=== PATIENT | male | born 1950 | race Caucasian/White ===

== ENCOUNTER → 2021-11-06 | Outpatient (CLI) | payer OTHER ==
[~2021-11-06] MED LIST: ALLO300 PO; AMLO5 PO; ASPI81CH PO; ATEN25 PO; B-COMPLEX WITH1 EAC1 PO; CHOL10002; CYAN100 PO; FOLI1 PO; HYDMOR4 PO; LOSA25 PO; LOVA40; METO100ER PO; OLME20 PO; OMEP20ER PO; OXYACE5T PO; POTCHL10ER PO; PROM25 PO; RXOXYACE PO; RXPROM25 PO; SIMV10 PO; TAMS.4ER PO; TEMA15 PO; WATER PILL; [UNRECOGNIZED DRUG - REMARK]
== END | disposition home or self-care (01) ==
LOC: LAB SHORT 09:54 → PLD 09:54
DX: D22.5 Melanocytic nevi of trunk (principal)
CPT/HCPCS: 88305

== ENCOUNTER → 2022-01-23 | Outpatient (CLI) | payer OTHER | END | disposition home or self-care (01) | LOC: PLD 08:32 → LAB SHORT 08:32 | DX: D22.5 Melanocytic nevi of trunk (principal) | CPT/HCPCS: 88305 ==

== ENCOUNTER 2023-04-26 15:39 | Inpatient (IN) | payer OTHER ==
[~2023-04-26] VITALS: Ht 175.3 cm; Wt 91.0 kg
[~2023-04-26 15:39] MED LIST changes: +CEFD300 PO; +IBUP600 PO
[2023-04-26 16:20] LABS: Hematocrit 33.2 % (37.0-53.0); Hemoglobin 12.3 g/dL (13.5-17.5); Mean Corpuscular HGB 34.2 pg (26.0-34.0); Mean Corpuscular Volume 92 fL (80-100); Mean Platelet Volume 10.6 fL (9.1-12.4); NRBC ABSOLUTE 0.02 K/mm3 (0.00-0.02); NRBC Auto 0.2 /100 WBC (0.0-0.2); Platelet Count 373 K/mm3 (150-400); RDW Coefficient Variation 14.5 % (11.7-14.2); RDW Standard Deviation 48.3 fL (35.1-46.3); White Blood Cell Count 12.79 K/mm3 (4.00-11.30)
[2023-04-26 16:46] LABS: Albumin, Blood 1.7 g/dL (3.4-5.0); Albumin/Globulin Ratio 0.3 (0.8-1.8); Bilirubin, Total 0.7 mg/dL (0.1-1.0); Bun/Creatinine Ratio 20.5 (12.0-20.0); Calcium, Blood 8.9 mg/dL (8.5-10.1); Creatinine, Blood 3.17 mg/dL (0.60-1.20); Globulin, Blood 6.6 g/dL (2.2-4.0); Total Protein, Blood 8.3 g/dL (6.4-8.2)
[2023-04-26 16:57] LABS: BAND PERCENT MAN 53 % (0-8); BASOPHILS PERCENT MAN 0 % (0-2); EOSINOPHILS ABSOLUTE MAN 0.25 K/mm3 (0.00-0.68); EOSINOPHILS PERCENT MAN 2 % (0-6); LYMPHOCYTES ABSOLUTE MAN 1.66 K/mm3 (0.84-5.20); LYMPHOCYTES PERCENT MAN 13 % (21-46); METAMYELOCYTE ABSOLUTE MAN 0.25 K/mm3 (0.00-0.00); METAMYELOCYTE PERCENT MAN 2 % (0-0); MONOCYTES ABSOLUTE MAN 0.63 K/mm3 (0.16-1.47); MONOCYTES PERCENT MAN 5 % (4-13); MYELOCYTE ABSOLUTE MAN 0.12 K/mm3 (0.00-0.00); MYELOCYTE PERCENT MAN 1 % (0-0); NEUTROPHILS ABSOLUTE MAN 9.84 K/mm3 (1.96-9.15); SEG NEUTROPHILS PERCENT MAN 24 % (41-73); TOTAL CELLS COUNTED 100
[2023-04-27 02:24] VITALS: BP 103/56
[2023-04-27 05:29] LABS: Hematocrit 30.3 % (37.0-53.0); Hemoglobin 10.8 g/dL (13.5-17.5); Mean Corpuscular HGB 33.6 pg (26.0-34.0); Mean Corpuscular HGB Conc 35.6 g/dL (31.5-36.5); Mean Corpuscular Volume 94 fL (80-100); Mean Platelet Volume 10.6 fL (9.1-12.4); Platelet Count 345 K/mm3 (150-400); RDW Coefficient Variation 14.8 % (11.7-14.2); RDW Standard Deviation 50.8 fL (35.1-46.3); Red Blood Cell Count 3.21 M/mm3 (4.30-5.90); White Blood Cell Count 8.98 K/mm3 (4.00-11.30)
[2023-04-27 06:17] LABS: BAND PERCENT MAN 20 % (0-8); BASOPHILS ABSOLUTE MAN 0.08 K/mm3 (0.00-0.23); BASOPHILS PERCENT MAN 1 % (0-2); EOSINOPHILS ABSOLUTE MAN 0.17 K/mm3 (0.00-0.68); EOSINOPHILS PERCENT MAN 2 % (0-6); LYMPHOCYTES ABSOLUTE MAN 1.52 K/mm3 (0.84-5.20); LYMPHOCYTES PERCENT MAN 17 % (21-46); MONOCYTES PERCENT MAN 9 % (4-13); NEUTROPHILS ABSOLUTE MAN 6.37 K/mm3 (1.96-9.15); SEG NEUTROPHILS PERCENT MAN 51 % (41-73); TOTAL CELLS COUNTED 100
[2023-04-27 06:54] LABS: Bun/Creatinine Ratio 20.8 (12.0-20.0); Calcium, Blood 7.7 mg/dL (8.5-10.1); Creatinine, Blood 2.88 mg/dL (0.60-1.20); Potassium, Blood 3.6 mmol/L (3.5-5.5)
--- NOTE | 2023-04-27 07:21 | NUR ---
SHIFT SUMMARY ADMITTED FROM ED. EMPYEMA. GAS MAIN FITTER HELPER CONSULTED. A/OX4. ROOM AIR. TACHYPNIC, CRACKLES TO R LUNG. IV FLUIDS INFUSING. SKIN INTACT. 1 PERSON ASSISST WITH GAIT BELT, GENERALIZED WEAKNESS. VERY POOR APPETITE, NO BM FOR MORE THAN 3 DAYS. ABLE TO MAKE NEEDS KNOWN, CALL LIGHT IN REACH, BED ALARM ON, BED LOCKED IN LOW POSITION.
[2023-04-27 07:27] VITALS: BP 134/73
[2023-04-27 08:35] LABS: International Normalized Ratio 1.42; Prothrombin Time Results 14.6 Sec (9.7-11.5)
[2023-04-27 12:18] LABS: Glucose, Body Fluid 16 mg/dL
[2023-04-27 12:53] LABS: Automated BF RBC Count 0.264 M/mm3 (0-0); Automated BF WBC Count >200.000 K/mm3 (0-999); RBC Count, Body Fluid 264000 /mm3 (0-0)
[2023-04-27 12:54] LABS: Appearance, Body Fluid Cloudy (Clear)
[2023-04-27 13:11] LABS: Total Cell Count, Body Fluid 100
[2023-04-27 16:29] VITALS: BP 90/50
--- NOTE | 2023-04-27 17:30 | NUR ---
SHIFT SUMMARY PT AxOx3-4. PLEASANT AND COOPERATIVE WITH CARE. PT HAD CHEST TUBE PLACED AND DRAINAGE FROM EMPYEMA THIS AM. PT TOLERATED PROCEDURE WELL AND RETURNED TO HIS ROOM AT APPROX 1100. PAIN MEDS ADMINISTERED PER EMAR FOR PAIN R/T PROCEDURE. CHEST TUBE SITE TO R POSTERIOR BACK WITH WINDOW DRESSING COVERING INTACT. DUST BOX WORKER (JEN) IN ROOM REGULARLY T/O THIS SHIFT, AND CALLED TO UPDATE S/O () ON PLAN OF CARE. PT HAS REMAINED STABLE. IV ABX WERE CHANGED AND IV FLUIDS WERE RESTARTED. CHEST TUBE SUCTION SET TO 20 -mmHG. PT HAS BEEN INCONTINENT WITH PROFOUND GENERAL WEAKNESS THIS SHIFT. PT IS CURRENLY RESTING IN BED WITH S/O AT BEDSIDE. S/O () REPORTS BEING VERY CONCERNED ABOUT THE PATIENT'S OF POOR-NON EXISTENT APPETITE x2 WEEKS. PT TOOK A FEW SIPS OF WATER, GATORADE, AND ENSURE THIS SHIFT. OTHERWISE, HE REFUSED ALL MEALS. CALL LIGHT IN REACH. PER PROVIDER, PT SHOULD EXPECT A FEW NIGHT STAY IN THE HOSPITAL.
[2023-04-27 19:55] VITALS: BP 112/58
[2023-04-28 02:12] VITALS: BP 97/52
--- NOTE | 2023-04-28 04:14 | NUR ---
SHIFT SUMMARY A/0X4. WAS SATTING 90% ON ROOM AIR. PLACED ON 1L NC. PRODUCTIVE COUGH, STREAKED WITH BLOOD. BILATEAL LE EDEMA. PLAN TO DIURESE AND ECHO OF HEART TODAY. CONTINENT, URINALS AT BEDSIDE. 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 NO OPEN WOUNDS. DAILY WEIGHTS. CALL LIGHT IN REACH, BED LOCKED IN LOW POSITION.
--- NOTE | 2023-04-28 04:35 | NUR ---
SHIFT SUMMARY PT LETHARGIC, OPENS EYES TO VOICE. MIXED INCONTINENCE, BRIEF ON, URINALS AT BEDSIDE. CHEST TUBE PLACED 04/27, BROWN/RED OUTPUT. JOINTS TAPED. WALL SUCTION AT -20. NO CREPITUS, CRACKLES TO RIGHT LUNG. REPEAT CHEST X-RAY THIS AM. VERY POOR APPETITE, ASSURANCE MANAGER INSURANCE CONSULTED, ENCOURAGE ORAL INTAKE/ELECTROLYTES. PT REPORTS SORENESS TO CHEST TUBE SITE BUT NO ASSOCIATED PAIN. IV FLUIDS INFUSING. CALL LIGHT IN REACH, BED ALARM ON, BED LOCKED IN LOW POSITION.
[2023-04-28 05:33] LABS: Hematocrit 24.6 % (37.0-53.0); Mean Corpuscular HGB 34.2 pg (26.0-34.0); Mean Corpuscular HGB Conc 36.6 g/dL (31.5-36.5); Mean Corpuscular Volume 94 fL (80-100); Mean Platelet Volume 10.4 fL (9.1-12.4); Platelet Count 294 K/mm3 (150-400); RDW Coefficient Variation 14.9 % (11.7-14.2); RDW Standard Deviation 50.2 fL (35.1-46.3); Red Blood Cell Count 2.63 M/mm3 (4.30-5.90); White Blood Cell Count 8.22 K/mm3 (4.00-11.30)
[2023-04-28 06:15] LABS: Albumin, Blood 1.1 g/dL (3.4-5.0); Albumin/Globulin Ratio 0.2 (0.8-1.8); BAND PERCENT MAN 8 % (0-8); BASOPHILS ABSOLUTE MAN 0.16 K/mm3 (0.00-0.23); BASOPHILS PERCENT MAN 2 % (0-2); Bilirubin, Total 0.5 mg/dL (0.1-1.0); Bun/Creatinine Ratio 24.8 (12.0-20.0); Calcium, Blood 7.9 mg/dL (8.5-10.1); Creatinine, Blood 2.14 mg/dL (0.60-1.20); EOSINOPHILS ABSOLUTE MAN 0.57 K/mm3 (0.00-0.68); EOSINOPHILS PERCENT MAN 7 % (0-6); Globulin, Blood 4.7 g/dL (2.2-4.0); LYMPHOCYTES ABSOLUTE MAN 1.31 K/mm3 (0.84-5.20); LYMPHOCYTES PERCENT MAN 16 % (21-46); MONOCYTES ABSOLUTE MAN 1.06 K/mm3 (0.16-1.47); MONOCYTES PERCENT MAN 13 % (4-13); NEUTROPHILS ABSOLUTE MAN 5.09 K/mm3 (1.96-9.15); Potassium, Blood 2.9 mmol/L (3.5-5.5); SEG NEUTROPHILS PERCENT MAN 54 % (41-73); TOTAL CELLS COUNTED 100
[2023-04-28 06:20] LABS: Total Protein, Blood 5.8 g/dL (6.4-8.2)
[2023-04-28 07:34] VITALS: BP 103/54
[2023-04-28 07:37] LABS: Base Excess Venous -8.7 mmol/L; Bicarbonate Venous 17.9 mmol/L (24.0-30.0); PCO2 Venous 36.2 mmHg (38-42)
[2023-04-28 16:52] VITALS: BP 102/63
--- NOTE | 2023-04-28 16:57 | NUR ---
PT IS A/OX4, PLEASANT AND COOPERATIVE. THE PT IS BEDREST AT THIS TIME DUE TO CHEST TUBE INSERTED IN HIS MID BACK. THE PT WAS MEDICATED FOR PAIN X2 SO FAR THIS SHIFT. PT APPEARS TO BE BREATHING EASILY ON 1L/MIN O2 AT THIS TIME. THE PT HAD A LARGE BM. THIS AM. DR. OVERTON MACHINE OPERATOR HELPER WAS IN TO CONSULT WITH THE PT TODAY. CALL LIGHT IN REACH. BED IN THE LOW POSITION
[2023-04-28 19:34] VITALS: BP 104/58
[2023-04-29 03:44] VITALS: BP 134/79
[2023-04-29 05:00] LABS: BASOPHILS ABSOLUTE AUTO 0.13 K/mm3 (0.00-0.23); BASOPHILS PERCENT AUTO 1 % (0-2); EOSINOPHILS ABSOLUTE AUTO 0.69 K/mm3 (0.00-0.68); EOSINOPHILS PERCENT AUTO 8 % (0-6); Hematocrit 26.7 % (37.0-53.0); Hemoglobin 9.7 g/dL (13.5-17.5); IMMATURE GRAN ABSOLUTE AUTO 0.47 K/mm3 (0.00-0.10); IMMATURE GRAN PERCENT AUTO 5 % (0-1); LYMPHOCYTES ABSOLUTE AUTO 1.53 K/mm3 (0.84-5.20); LYMPHOCYTES PERCENT AUTO 17 % (21-46); MONOCYTES ABSOLUTE AUTO 0.88 K/mm3 (0.16-1.47); MONOCYTES PERCENT AUTO 10 % (4-13); Mean Corpuscular HGB 34.5 pg (26.0-34.0); Mean Corpuscular HGB Conc 36.3 g/dL (31.5-36.5); Mean Corpuscular Volume 95 fL (80-100); Mean Platelet Volume 10.5 fL (9.1-12.4); NEUTROPHILS ABSOLUTE AUTO 5.52 K/mm3 (1.96-9.15); NEUTROPHILS PERCENT AUTO 60 % (41-73); NRBC ABSOLUTE 0.02 K/mm3 (0.00-0.02); NRBC Auto 0.2 /100 WBC (0.0-0.2); Platelet Count 300 K/mm3 (150-400); RDW Coefficient Variation 15.3 % (11.7-14.2); RDW Standard Deviation 52.6 fL (35.1-46.3); Red Blood Cell Count 2.81 M/mm3 (4.30-5.90); White Blood Cell Count 9.22 K/mm3 (4.00-11.30)
--- NOTE | 2023-04-29 05:06 | NUR ---
END OF SHIFT SUMMARY PT A&O x3-4, SOMEWHAT FORGETFUL. VSS, AFEBRILE. PT PLEASANT AND COOPERATIVE WITH CARE PROVIDED. PT CONTINENT OF B/B, USES URINAL AT BS. PT DENIED PAIN/DISCOMFORT DURING NURSING ASSESSMENT. PT SLEPT WELL THROUGHOUT THE SHIFT. PT ON 1L VIA NC. RESP RATE EVEN AND UNLABORED. CHEST TUBE DRAINAGE VERY SMALL AMOUNT OVERNIGHT. PT ABLE TO MAKE NEEDS KNOWN. CALL LIGHT WITHIN REACH, WCTM.
[2023-04-29 05:24] LABS: Albumin, Blood 1.2 g/dL (3.4-5.0); Albumin/Globulin Ratio 0.2 (0.8-1.8); Bilirubin, Total 0.4 mg/dL (0.1-1.0); Bun/Creatinine Ratio 23.4 (12.0-20.0); Calcium, Blood 8.1 mg/dL (8.5-10.1); Creatinine, Blood 1.71 mg/dL (0.60-1.20); Potassium, Blood 3.5 mmol/L (3.5-5.5); Total Protein, Blood 6.2 g/dL (6.4-8.2)
[2023-04-29 07:13] VITALS: BP 141/72
[2023-04-29 14:35] VITALS: BP 127/72
--- NOTE | 2023-04-29 18:18 | NUR ---
PT IS A/OX4, PLEASANT AND COOPERATIVE. THE PT IS UP WITH MINIMAL ASSIST TO THE CHAIR. THE PT WAS UP IN THE CHAIR FOR ABOUT AN HOUR TODAY. PT IS VERY WEAK ON HIS FEET. THE PT WAS TITRATED OFF OF OXYGEN TODAY SAT'S IN THE MID 90'S. PT CHEST TUBE REMAINS IN PLACE AND INTACT DRAINING SCANT AMOUNT OF FLUID AT THIS TIME. PT WAS MEDICATED FOR PAIN X1 TODAY. CALL LIGHT IN REACH. WILL CONTINUE TO MONITOR AND ASSESS FOR CAHNGES
[2023-04-29 21:15] VITALS: BP 117/66
[2023-04-30 03:06] VITALS: BP 146/83
--- NOTE | 2023-04-30 04:29 | NUR ---
END OF SHIFT SUMMARY PT SLEPT ON AND OFF THROUGHOUT THE SHIFT. PT A&O x3-4. THIS MORNING PT SEEMED TO BE SLIGHTLY CONFUSED, PT HELD THE IV TUBING UP IN HIS HAND ASKING CARE STAFF WHAT THAT WAS. PT RECEIVED IV ABX. PT EASILY REDIRECTABLE. PT HAD 2 EPISODES OF INCONTINENT LIQUID STOOLS. CORBY CARE PROVIDED. CALL LIGHT WRAPPED AROUND TOP OF BED RAIL, WITHIN REACH. PT CALM AND COOPERATIVE WITH CARE PROVIDED. FREQUENT SAFETY CHECKS COMPLETED. PT ABLE TO MAKE NEEDS KNOWN. WCTM.
[2023-04-30 05:00] LABS: BASOPHILS ABSOLUTE AUTO 0.11 K/mm3 (0.00-0.23); BASOPHILS PERCENT AUTO 1 % (0-2); EOSINOPHILS ABSOLUTE AUTO 0.76 K/mm3 (0.00-0.68); EOSINOPHILS PERCENT AUTO 10 % (0-6); Hemoglobin 9.5 g/dL (13.5-17.5); IMMATURE GRAN ABSOLUTE AUTO 0.42 K/mm3 (0.00-0.10); IMMATURE GRAN PERCENT AUTO 5 % (0-1); LYMPHOCYTES ABSOLUTE AUTO 1.57 K/mm3 (0.84-5.20); LYMPHOCYTES PERCENT AUTO 20 % (21-46); MONOCYTES ABSOLUTE AUTO 0.78 K/mm3 (0.16-1.47); MONOCYTES PERCENT AUTO 10 % (4-13); Mean Corpuscular HGB 34.4 pg (26.0-34.0); Mean Corpuscular HGB Conc 35.2 g/dL (31.5-36.5); Mean Corpuscular Volume 98 fL (80-100); Mean Platelet Volume 10.4 fL (9.1-12.4); NEUTROPHILS ABSOLUTE AUTO 4.13 K/mm3 (1.96-9.15); NEUTROPHILS PERCENT AUTO 53 % (41-73); Platelet Count 272 K/mm3 (150-400); RDW Coefficient Variation 15.8 % (11.7-14.2); RDW Standard Deviation 55.8 fL (35.1-46.3); Red Blood Cell Count 2.76 M/mm3 (4.30-5.90); White Blood Cell Count 7.77 K/mm3 (4.00-11.30)
[2023-04-30 05:27] LABS: Albumin, Blood 1.2 g/dL (3.4-5.0); Albumin/Globulin Ratio 0.2 (0.8-1.8); Bilirubin, Total 0.4 mg/dL (0.1-1.0); Bun/Creatinine Ratio 20.3 (12.0-20.0); Calcium, Blood 7.9 mg/dL (8.5-10.1); Creatinine, Blood 1.43 mg/dL (0.60-1.20); Potassium, Blood 3.5 mmol/L (3.5-5.5); Total Protein, Blood 6.2 g/dL (6.4-8.2)
[2023-04-30 07:09] VITALS: BP 147/81
[2023-04-30 15:58] VITALS: BP 137/84
--- NOTE | 2023-04-30 16:07 | NUR ---
PT IS A/OX4, PLEASANT AND COOPERATIVE. UP WITH 1 PERSON ASSIST TO THE CHAIR. TODAY THE PT AMBULATED INTO THE BATHROOM AND TOOK A SHOWER, THE PT WAS VERY WEAK ON HIS FEET AND SOMEWHAT SOB ON RETURN BACK TO THE BED. THE PT CONTINUES WITH CHEST TUBE DRAIN WITH SUCTION. DRAIN IS INTACT AND DRAING A SMALL AMOUNT OF YELLOW TINGED FLUID. PT WAS MEDICATED FOR PAIN X1 THIS AM. CALL LIGHT IN REACH. BED IN THE LOW POSITION.
[2023-04-30] MEDS ORDERED: ALLO100 PO (16:47)
[2023-04-30 21:19] VITALS: BP 158/92
[2023-05-01 01:42] VITALS: BP 104/75
[2023-05-01 05:25] LABS: BASOPHILS ABSOLUTE AUTO 0.11 K/mm3 (0.00-0.23); BASOPHILS PERCENT AUTO 1 % (0-2); EOSINOPHILS PERCENT AUTO 9 % (0-6); Hematocrit 30.3 % (37.0-53.0); Hemoglobin 10.5 g/dL (13.5-17.5); IMMATURE GRAN PERCENT AUTO 4 % (0-1); LYMPHOCYTES ABSOLUTE AUTO 1.63 K/mm3 (0.84-5.20); LYMPHOCYTES PERCENT AUTO 16 % (21-46); MONOCYTES ABSOLUTE AUTO 0.85 K/mm3 (0.16-1.47); MONOCYTES PERCENT AUTO 9 % (4-13); Mean Corpuscular HGB 33.9 pg (26.0-34.0); Mean Corpuscular HGB Conc 34.7 g/dL (31.5-36.5); Mean Corpuscular Volume 98 fL (80-100); Mean Platelet Volume 10.4 fL (9.1-12.4); NEUTROPHILS PERCENT AUTO 61 % (41-73); Platelet Count 278 K/mm3 (150-400); RDW Coefficient Variation 15.6 % (11.7-14.2); RDW Standard Deviation 55.2 fL (35.1-46.3); White Blood Cell Count 9.99 K/mm3 (4.00-11.30)
[2023-05-01 05:52] LABS: Bun/Creatinine Ratio 16.9 (12.0-20.0); Calcium, Blood 8.2 mg/dL (8.5-10.1); Creatinine, Blood 1.18 mg/dL (0.60-1.20); Potassium, Blood 3.5 mmol/L (3.5-5.5)
--- NOTE | 2023-05-01 06:12 | NUR ---
URINARY RETENTION AND LOOSE STOOLS PT HAS HAD ACUTE URINARY RETENTION THIS SHIFT, PT VOIDED 200 MLS AT THE START OF THE SHIFT BUT THE NIGHT PROGRESSED PT REPORTED FEELING UNCOMFORTABLE WITH THE URGE TO VOID, BUT HE WAS UNABLE. BLADDER SCAN PERFORMED WHICH SHOWED OVER 500 MLS IN BLADDER. IN ADDITION TO RETENTION PT HAS BEEN HAVING FREQUENT LOOSE STOOLS OVER THE PAST FEW DAYS. THEY APPEAR YELLOWISH BROWN WITH SOME JELLY LIKE CONSISTENCY. PROVIDER NOTIFIED, STRAIGHT CATH ORDERED AND ORDER TO TEST FOR CDIFF. PT STRAIGHT CATH AND 300 MLS OF URINE OBTAINED. STOOL SAMPLE COLLECTED. PT IN ISOLATION AT THIS TIME PENDING RESULTS.
--- NOTE | 2023-05-01 06:18 | NUR ---
SHIFT SUMMARY PT HAS BEEN AWAKE MOST OF THE SHIFT. PT HAS HAD SOME URINARY RETENTION AND FREQUENT INCONTINENT LOOSE STOOL EPISODES. PROVIDER MADE AWARE, SEE NURSES NOTES. PT REMAINS ON RA T/O THE NIGHT WITH NO ACUTE CHANGE TO RESPIRATORY STATUS. CHEST TUBE TO SUCTION WITH WITH MINIMAL OUTPUT THIS SHIFT. VITALS ARE STABLE, IV ANTIBIOTICS CONTINUED PER ORDERS. BED IN LOWEST POSITION, CALL LIGHT WITHIN REACH.
[2023-05-01 07:28] LABS: C DIFFICILE DNA NEGATIVE (Negative)
[2023-05-01 07:50] VITALS: BP 150/67
[2023-05-01 16:55] VITALS: BP 155/90
--- NOTE | 2023-05-01 18:31 | NUR ---
SHIFT SUMMARY: FAVIOLA IS A&OX4. VSS, NO ACUTE EVENTS THIS SHIFT. CHEST TUBE PATENT, CONNECTED TO SUCTION. PT HAS HAD A POOR APPETITE TODAY, BUT DENIES DIFFICULTY TOLERATING PO INTAKE. IV TO R FOREARM PATENT. PT HAS REQUIRED STRAIGHT CATH X 2 TODAY, PT COMPLAINS OF PAIN AND FULLNESS IN BLADDER WHICH HE REPORTS RESOLVES AFTER STRAIGHT CATH. HE REPORTS ADEQUATE PAIN RELIEF WITH MEDICATIONS PER MAR. HE IS LYING IN BED WITH THE CALL LIGHT IN REACH. WCTM UNTIL REPORT IS GIVEN TO ECOLOGY TEACHER RN.
[2023-05-01 19:41] VITALS: BP 152/79
[2023-05-01 20:20] LABS: Source, Urine Foley catheter
[2023-05-01 20:25] LABS: Appearance, Urine Cloudy (Clear); Bilirubin, Urine Neg (Neg); Blood, Urine 5+ (Neg); Color, Urine Amber (P-Yellow); Glucose Qualitative, Urine Neg (Neg); Ketones, Urine Neg (Neg); Leukocyte Esterase, Urine 1+ (Neg); Nitrite, Urine Neg (Neg); Protein, Urine 2+ (Neg); Specific Gravity, Urine 1.015 (1.003-1.022); Urobilinogen, Urine NORM (Normal)
[2023-05-01 21:20] LABS: Amorphous Light (0-Heavy); Bacteria Few /hpf; Red Blood Cells, Urine TNTC /hpf (0-2); Squamous Epithelial Cells Not Seen /hpf (Few); White Blood Cells, Urine 0-2 /hpf (0-5)
[2023-05-02 03:23] VITALS: BP 167/88
--- NOTE | 2023-05-02 06:50 | NUR ---
Shift Summary Per report pt had been straight cathed 3 times in the last 24 hours and he stated he was sure he would be unable to void. Contacted hospitalist who ordered Carson. During placement I noted it was difficult to enter the bladder and took some pressure. When Carson was placed it drained pink/red urine. Pt has a chest tube which remains patent. He is AOx4, rested well t/o the night.
[2023-05-02 07:33] LABS: Bun/Creatinine Ratio 12.1 (12.0-20.0); Calcium, Blood 7.6 mg/dL (8.5-10.1); Creatinine, Blood 1.07 mg/dL (0.60-1.20); Potassium, Blood 3.3 mmol/L (3.5-5.5)
[2023-05-02 07:58] VITALS: BP 170/81
[2023-05-02 14:59] VITALS: BP 134/77
--- NOTE | 2023-05-02 18:45 | NUR ---
SHIFT SUMMARY: FAVIOLA IS A&OX4. VSS, NO ACUTE EVENTS THIS SHIFT. HE DID REQUEST THAT STAFF CALL HIS SIGNIFICANT OTHER WHEN DOCTORS COME TO SPEAK WITH HIM, STATING THAT HE DOES NOT FEEL HE IS UNDERSTANDING EVERYTHING THAT IS BEING COMMUNICATED TO HIM, PHONE NUMBER AT BEDSIDE. CHEST TUBE TO SUCTION, IV TO L AC PATENT. HE IS TOLERATING PO INTAKE WELL, INCREASED APPETITE NOTED THIS SHIFT. FAITH PATENT, DRAINING RUST COLORED URINE. PT REPORTS ADEQUATE PAIN CONTROL WITH MEDICATION PER MAR. ATTENDS IN PLACE, PT ENCOURAGED TO TURN AND REPOSITION FREQUENTLY TO AVOID DEVELOPING PRESSURE ULCERS, PT REPORTS THAT HE WILL CONTINUE TO DO SO. HE IS LYING IN BED WITH THE CALL LIGHT IN REACH. WCTM UNTIL REPORT IS GIVEN TO TIGHTENING MACHINE OPERATOR RN.
[2023-05-02 19:41] VITALS: BP 130/72
[2023-05-03 02:51] VITALS: BP 152/79
[2023-05-03 04:56] LABS: BASOPHILS PERCENT AUTO 1 % (0-2); EOSINOPHILS ABSOLUTE AUTO 0.98 K/mm3 (0.00-0.68); EOSINOPHILS PERCENT AUTO 9 % (0-6); Hematocrit 26.1 % (37.0-53.0); Hemoglobin 9.1 g/dL (13.5-17.5); IMMATURE GRAN ABSOLUTE AUTO 0.13 K/mm3 (0.00-0.10); IMMATURE GRAN PERCENT AUTO 1 % (0-1); LYMPHOCYTES ABSOLUTE AUTO 1.77 K/mm3 (0.84-5.20); LYMPHOCYTES PERCENT AUTO 17 % (21-46); MONOCYTES ABSOLUTE AUTO 1.06 K/mm3 (0.16-1.47); MONOCYTES PERCENT AUTO 10 % (4-13); Mean Corpuscular HGB 34.3 pg (26.0-34.0); Mean Corpuscular HGB Conc 34.9 g/dL (31.5-36.5); Mean Corpuscular Volume 99 fL (80-100); NEUTROPHILS ABSOLUTE AUTO 6.43 K/mm3 (1.96-9.15); NEUTROPHILS PERCENT AUTO 61 % (41-73); Platelet Count 235 K/mm3 (150-400); RDW Standard Deviation 53.1 fL (35.1-46.3); Red Blood Cell Count 2.65 M/mm3 (4.30-5.90); White Blood Cell Count 10.47 K/mm3 (4.00-11.30)
[2023-05-03 05:55] LABS: Albumin, Blood 1.4 g/dL (3.4-5.0); Albumin/Globulin Ratio 0.3 (0.8-1.8); Bilirubin, Total 0.4 mg/dL (0.1-1.0); Bun/Creatinine Ratio 12.5 (12.0-20.0); Calcium, Blood 7.5 mg/dL (8.5-10.1); Creatinine, Blood 1.12 mg/dL (0.60-1.20); Globulin, Blood 4.8 g/dL (2.2-4.0); Potassium, Blood 3.5 mmol/L (3.5-5.5); Total Protein, Blood 6.2 g/dL (6.4-8.2)
--- NOTE | 2023-05-03 06:35 | NUR ---
Shift Summary urine is clifford in color tonight instead of red or pink, no hematuria t/o the shift. Foely still in place at patent. Chest tube in place and patent with scant increase in drainage. drainage level marked on device this AM per MD request. Pt c/o back pain, medicated once per EMAR and slept well t/o the night. Pt had two incontinent loose BMs tonight.
[2023-05-03 07:35] VITALS: BP 152/79
[2023-05-03 15:30] VITALS: BP 130/77
--- NOTE | 2023-05-03 16:14 | NUR ---
PT IS A/OX4, PLEASANT AND COOPERATIVE. THE PT WAS SOMULANT FOR MOST OF THE DAY. THE PT WAS ENCOURAGED TO GET UP TO THE CHAIR SEVERAL TIMES TODAY BY THIS NURSE AND THE ENVIRONMENTAL STUDIES PROGRAM DIRECTOR AND DECLINED TO GET UP FROM THE BED. PT CONTINUES TO HAVE A CHEST TUBE DRAIN WITH SUCTION TO HIS MID BACK. PT IS BREATHING EASILY AT REST WITHOUT OXYGEN. THE PT WAS MEDICATED FOR PAIN X1 SO FAR THIS SHIFT. PT IS VERY EXCORIATED IN HIS GROIN AREA FROM LOOSE BM'S, BARRIER CREAM WAS APPLIED TO THE AFFECTED AREA. CALL LIGHT IN REACH. BED IN THE LOW POSITION.
[2023-05-03 19:43] VITALS: BP 175/93
[2023-05-04 03:54] VITALS: BP 153/82
[2023-05-04 04:53] LABS: Hemoglobin 8.5 g/dL (13.5-17.5); Mean Corpuscular HGB 33.5 pg (26.0-34.0); Mean Corpuscular Volume 98 fL (80-100); Mean Platelet Volume 9.8 fL (9.1-12.4); Platelet Count 281 K/mm3 (150-400); RDW Coefficient Variation 14.9 % (11.7-14.2); RDW Standard Deviation 53.4 fL (35.1-46.3); Red Blood Cell Count 2.54 M/mm3 (4.30-5.90)
--- NOTE | 2023-05-04 05:01 | NUR ---
END OF SHIFT SUMMARY PT A&O x4, VSS, AFEBRILE, PT ON RA. PT PLEASANT AND COOPERATIVE WITH CARE PROVIDED. PT C/O PAIN TO LOWER BACK. PAIN MANAGED WITH PRN PERCOCET WHICH WAS EFFECTIVE. PT SLEPT ON AND OF THROUGHOUT THE NIGHT. FAITH CATH DRAINING WELL, PT C/O PAIN TO LOWER BACK. PAIN MANAGED WITH PRN PERCOCET WHICH WAS EFFECTIVE, URINE LOVE IN COLOR. PT HAD INCONTINENT EPISODES OF STOOL x2 OVERNIGHT. CHEST TUBE IN PLACE, SUCTION TURNED ON, NO OUTPUT NOTED. PT HAD 2x LOOSE/LIQUID STOOL. PT ABLE TO MAKE NEEDS KNOWN. CALL LIGHT WITHIN REACH. WCTM.
[2023-05-04 05:20] LABS: Bun/Creatinine Ratio 13.8 (12.0-20.0); Calcium, Blood 7.9 mg/dL (8.5-10.1); Creatinine, Blood 1.16 mg/dL (0.60-1.20); Potassium, Blood 3.6 mmol/L (3.5-5.5)
[2023-05-04 07:49] VITALS: BP 140/79
[2023-05-04 15:26] VITALS: BP 125/62
--- NOTE | 2023-05-04 16:02 | NUR ---
PT IS A/OX4, PLEASANT AND COOPERATIVE. THE PT IS UP WITH ASSIST, PT IS WEAK/DECONDITIONED. THE PT WAS UP TO THE BSC TODAY. PT CONTINUES WITH CHEST TUBE TO SUCTION. PT IS BREATHING EASILY AT REAST WITHOUT OXYGEN. PT WAS MEDICATED FOR PAIN X1 SO FAR THIS SHIFT. PT CONTINUES TO HAVE LOOSE STOOLS. PTS GROIN VERY EXCORIATED BARRIER CREAM APPLIED LIBERLY TO THE AFFECTED AREA. CALL LIGHT IN REACH, BED IN THE LOW POSITION
[2023-05-05 03:59] VITALS: BP 140/81
[2023-05-05 04:47] LABS: BASOPHILS PERCENT AUTO 1 % (0-2); EOSINOPHILS ABSOLUTE AUTO 0.88 K/mm3 (0.00-0.68); EOSINOPHILS PERCENT AUTO 8 % (0-6); Hematocrit 24.7 % (37.0-53.0); Hemoglobin 8.4 g/dL (13.5-17.5); IMMATURE GRAN PERCENT AUTO 1 % (0-1); LYMPHOCYTES ABSOLUTE AUTO 2.52 K/mm3 (0.84-5.20); LYMPHOCYTES PERCENT AUTO 23 % (21-46); MONOCYTES ABSOLUTE AUTO 1.01 K/mm3 (0.16-1.47); MONOCYTES PERCENT AUTO 9 % (4-13); Mean Corpuscular HGB 33.9 pg (26.0-34.0); Mean Corpuscular Volume 100 fL (80-100); NEUTROPHILS ABSOLUTE AUTO 6.46 K/mm3 (1.96-9.15); NEUTROPHILS PERCENT AUTO 58 % (41-73); Platelet Count 301 K/mm3 (150-400); RDW Coefficient Variation 15.4 % (11.7-14.2); RDW Standard Deviation 54.1 fL (35.1-46.3); Red Blood Cell Count 2.48 M/mm3 (4.30-5.90); White Blood Cell Count 11.07 K/mm3 (4.00-11.30)
--- NOTE | 2023-05-05 05:06 | NUR ---
END OF SHIFT SUMMARY PT A&O x4, VSS, AFEBRILE. OXYGEN SAT 93% ON RA. PT CALM AND COOPERATIVE WITH CARE PROVIDED. PT SLEPT WELL OVERNIGHT. PT C/O NAUSEA, PRN IV ZOFRAN GIVEN, WITH GOOD RESULTS. PT RECEIVED IV ANTIBIOTIC, ZOSYN. FAITH CATH DRAINING WELL, URINE LOVE. CHEST TUBE IN PLACE TURNED ON TO 20CM SUCTION. FREQUENT SAFETY CHECKS COMPLETED DURING THE SHIFT TO ENSURE THE CHEST TUBE WAS SECURED PROPERLY. REPOSITIONING AND PAIN MEDICATION USED TO KEEP PT COMFORTABLE. PAIN MANAGED WITH PRN PERCOCET, WHICH WAS EFFECTIVE. CALL LIGHT WITHIN REACH, WCTM.
[2023-05-05 05:10] LABS: Bun/Creatinine Ratio 14.9 (12.0-20.0); Calcium, Blood 7.8 mg/dL (8.5-10.1); Creatinine, Blood 1.14 mg/dL (0.60-1.20); Potassium, Blood 3.8 mmol/L (3.5-5.5)
[2023-05-05 07:27] VITALS: BP 163/86
[2023-05-05 13:37] VITALS: BP 150/94
--- NOTE | 2023-05-05 18:15 | NUR ---
SHIFT SUMMARY PT A&OX4 AND PLEASANT. PT HAS RIGHT POSTERIOR CHEST TUBE. VERY LITTLE OUTPUT PER ELECTRICAL CONTROLS ENGINEER NURSE. DR BOURGEOIS AT BEDSIDE IN MORNING AND ASSESSED TUBE. TUBE HAD SOME RESIDUE THAT APPEARED TO BE BLOCKING DRAINAGE. DR BOURGEOIS ADMINISTERED ACTIVASE AND PULMOZYME THROUGH CHEST TUBE A FIBRINOLYSIS. SHORTLY AFTER, PT STARTED COUGHING UP BLOOD TINGED FLUIDS. PT'S LUNGS ALSO SOUNDED COURSE AND PT HAD ADAUBLE GARGLING SOUND. DR BOURGEOIS CALLED AND CAME BACK TO ASSESS PT. 1 VIEW CHEST XRAY TAKEN AND, PER DR SCALES, IMAGE WAS "GOOD". PT ALSO PLACED ON 2L OF OXYGEN DUE TO FEELING SOB AND O2 SATS AT ABOUT 89%. PT STARTED IMPROVING AFTER ABOUT 30 MIN. PT VERBALIED FEELING BETTER AND WAS NO LONGER COUGHING UP BLOOD OR FEELING SOB. OXYGEN REMOVED. CHEST TUBE HAS INCREASED DRAINAGE. PT DECLINED TO WORK WITH PHYSICALY THERAPY. PT APPEARED MORE TIRED IN AFTERNOON. PT C/O PAIN IN RIGHT SIDE OF BACK AND HIP. MEDICATED PER EMAR. FAITH CATHETER DC'd TODAY. PT ABLE TO VOID URING URINAL. BED IN LOWEST POSITION AND CALL LIGHT IN REACH.
[2023-05-05 20:32] VITALS: BP 153/86
[2023-05-06 03:05] VITALS: BP 172/90
[2023-05-06 05:32] LABS: BASOPHILS ABSOLUTE AUTO 0.14 K/mm3 (0.00-0.23); BASOPHILS PERCENT AUTO 1 % (0-2); EOSINOPHILS ABSOLUTE AUTO 0.76 K/mm3 (0.00-0.68); EOSINOPHILS PERCENT AUTO 8 % (0-6); Hematocrit 24.8 % (37.0-53.0); Hemoglobin 8.3 g/dL (13.5-17.5); IMMATURE GRAN ABSOLUTE AUTO 0.06 K/mm3 (0.00-0.10); IMMATURE GRAN PERCENT AUTO 1 % (0-1); LYMPHOCYTES ABSOLUTE AUTO 1.83 K/mm3 (0.84-5.20); LYMPHOCYTES PERCENT AUTO 18 % (21-46); MONOCYTES ABSOLUTE AUTO 0.62 K/mm3 (0.16-1.47); MONOCYTES PERCENT AUTO 6 % (4-13); Mean Corpuscular HGB 33.5 pg (26.0-34.0); Mean Corpuscular HGB Conc 33.5 g/dL (31.5-36.5); Mean Corpuscular Volume 100 fL (80-100); Mean Platelet Volume 9.8 fL (9.1-12.4); NEUTROPHILS ABSOLUTE AUTO 6.69 K/mm3 (1.96-9.15); NEUTROPHILS PERCENT AUTO 66 % (41-73); Platelet Count 344 K/mm3 (150-400); RDW Coefficient Variation 15.5 % (11.7-14.2); RDW Standard Deviation 53.9 fL (35.1-46.3); Red Blood Cell Count 2.48 M/mm3 (4.30-5.90)
[2023-05-06 05:52] LABS: Bun/Creatinine Ratio 10.7 (12.0-20.0); Calcium, Blood 8.1 mg/dL (8.5-10.1); Creatinine, Blood 1.22 mg/dL (0.60-1.20); Potassium, Blood 3.8 mmol/L (3.5-5.5)
--- NOTE | 2023-05-06 06:24 | NUR ---
SHIFT SUMMARY CHEST TUBE TO RIGHT POSTERIOR BACK TEGADERM DRESSING WAS ROLLING UP ON ONE SIDE, SECURED WITH ANOTHER TEGADERM. SANGOUNOUS DRAINAGE FROM CHEST TUBE. WALL SUCTION INTACT, NO CREPITUS NOTED. MILD INFLAMMATION. NO C/O OF PAIN. PT URINATED SMALL AMOUNTS. HAD TO STRAIGHT CATH X1 400 OUT. 480 ON BLADDER SCAN BUT PT HAD 1 NONMEASURED VOID PRIOR TO STRAIGHT CATH. PRN MELATONIN ADDED AND GIVEN LAST NIGHT ON TOP OF SCHEDULED RESTORIL. PT FINALLY GOT SOME SLEEP AFTER 3 AM. HAD BM THIS MORNING.
[2023-05-06 07:26] VITALS: BP 146/80
[2023-05-06 15:48] VITALS: BP 137/72
--- NOTE | 2023-05-06 18:38 | NUR ---
SHIFT SUMMARY PT A&OX4. PT MORE SOMNOLENT TODAY. PT STILL HAVING SEVERAL SOFT BM'S A DAY. PT ALSO VERBALIZED HAVING DIFFICULTY VOIDING AND WAS INCOTINENT AT TIMES. VERY SMALL AMOUNTS OF URINE PRODUCED WHEN USING THE URINAL. PT BLADDER SCANNED 3 TIMES TODAY. SEE BLADDER INTERVENTION. PT WAS ALSO STRAIGHT CATHED AT ABOUT 1300. PT C/O FEELING SOB IN THE MORNING. O2 SATURATION WAS 93%. PT PLACED ON 1L OF OXYGEN AND O2 SATS CAME UP TO 97%. ABLE TO REMOVE OXYGEN IN AFTERNOON. PT DID C/O PAIN. MEDICATED PER EMAR. DR BOURGEOIS IN TO ASSESS AND FLUSH CHEST TUBE. VERY MINIMAL OUTPUT FROM CHEST TUBE TODAY. PT WAS ABLE TO SLEEP FOR A COUPLE HOURS IN AFTERNOON AND REPORTED FEELING BETTER. BED IN LOWEST POSITIOIN AND CALL LIGHT IN REACH.
[2023-05-06 20:04] VITALS: BP 129/70
--- NOTE | 2023-05-06 23:28 | NUR ---
I WAS REQUESTED BY BI BENNETT RN TO CHART CHEST TUBE DRAINAGE 10 ML OUTPUT 05/06/23.
[2023-05-07 05:01] VITALS: BP 128/56
[2023-05-07 07:40] LABS: BASOPHILS ABSOLUTE AUTO 0.11 K/mm3 (0.00-0.23); BASOPHILS PERCENT AUTO 1 % (0-2); EOSINOPHILS ABSOLUTE AUTO 0.63 K/mm3 (0.00-0.68); EOSINOPHILS PERCENT AUTO 6 % (0-6); Hematocrit 22.8 % (37.0-53.0); Hemoglobin 7.6 g/dL (13.5-17.5); IMMATURE GRAN ABSOLUTE AUTO 0.06 K/mm3 (0.00-0.10); IMMATURE GRAN PERCENT AUTO 1 % (0-1); LYMPHOCYTES ABSOLUTE AUTO 2.02 K/mm3 (0.84-5.20); LYMPHOCYTES PERCENT AUTO 20 % (21-46); MONOCYTES PERCENT AUTO 7 % (4-13); Mean Corpuscular HGB 33.2 pg (26.0-34.0); Mean Corpuscular HGB Conc 33.3 g/dL (31.5-36.5); Mean Corpuscular Volume 100 fL (80-100); Mean Platelet Volume 9.7 fL (9.1-12.4); NEUTROPHILS ABSOLUTE AUTO 6.52 K/mm3 (1.96-9.15); NEUTROPHILS PERCENT AUTO 65 % (41-73); Platelet Count 345 K/mm3 (150-400); RDW Coefficient Variation 15.7 % (11.7-14.2); RDW Standard Deviation 54.2 fL (35.1-46.3); Red Blood Cell Count 2.29 M/mm3 (4.30-5.90); White Blood Cell Count 10.04 K/mm3 (4.00-11.30)
[2023-05-07 08:00] VITALS: BP 153/90
[2023-05-07 08:04] LABS: Bun/Creatinine Ratio 10.7 (12.0-20.0); Calcium, Blood 7.8 mg/dL (8.5-10.1); Creatinine, Blood 1.21 mg/dL (0.60-1.20); Potassium, Blood 3.9 mmol/L (3.5-5.5)
[2023-05-07 12:55] LABS: Hematocrit 24.2 % (37.0-53.0); Hemoglobin 8.1 g/dL (13.5-17.5)
[2023-05-07 15:51] VITALS: BP 135/75
--- NOTE | 2023-05-07 18:12 | NUR ---
SHIFT SUMMARY PT A&OX4, VSS, AMB TO CHAIR W/ MINIMAL ASSIST THIS SHIFT AND TOLERATED IT WELL, REPORTS CONT DIARRHEA W/ INCONTINENCE AT TIMES, VOIDING SMALL AMOUNTS OF URINE, AND DENIED PAIN. BLADDER SCAN SHOWED 251 AT 1500, NO STRAIGHT CATH NEEDED AT THIS TIME. PT HAD CT AND XRAY THIS AM, DR. BOURGEOIS CLAMPED THE CHEST TUBE, AND XRAY TO BE DONE TOMORROW. CALL LIGHT WITHIN REACH AND PT ABLE TO MAKE NEEDS KNOWN.
[2023-05-07 20:07] VITALS: BP 130/65
--- NOTE | 2023-05-08 04:28 | NUR ---
SHIFT SUMMARY PATIENT A/Ox4, PLEASANT/COOPERATIVE. INTERMITTANT PAIN MANAGED PER eMAR. CHEST TUBE IN PLACE, CLAMPED OVERNIGHT, DRESSING INTACT. INCONTINENT, LOOSE STOOL, DID ATTEMPT TO VOID IN URINAL, <50ML, BLADDER [id number] POST VOID. HAS HAD MULTIPLE LARGE IN CONTINENT VOIDS SINCE, STRUGGLES TO VOID AT WILL. NO ACUTE CHANGES NOTED OVERNIGHT, CALL LIGHT IN REACH.
[2023-05-08 04:45] LABS: Hematocrit 22.1 % (37.0-53.0); Hemoglobin 7.4 g/dL (13.5-17.5); Mean Corpuscular HGB 33.6 pg (26.0-34.0); Mean Corpuscular HGB Conc 33.5 g/dL (31.5-36.5); Mean Corpuscular Volume 101 fL (80-100); Mean Platelet Volume 9.7 fL (9.1-12.4); Platelet Count 372 K/mm3 (150-400); RDW Coefficient Variation 15.8 % (11.7-14.2); RDW Standard Deviation 54.9 fL (35.1-46.3); White Blood Cell Count 8.51 K/mm3 (4.00-11.30)
[2023-05-08 08:13] VITALS: BP 135/77
[2023-05-08] MEDS ORDERED: TAMS.4ER PO (13:21)
[2023-05-08] MEDS ORDERED: POTCIT10 PO (13:23)
[2023-05-08] MEDS ORDERED: BANATROL PLUS1 EAC1 PO (13:24)
[2023-05-08] MEDS ORDERED: AMOX875 PO (13:24)
[2023-05-08] MEDS ORDERED: B-12 COMPL1000 MCG/2 IM (13:26)
[2023-05-08] MEDS ORDERED: FOLI1 PO (13:26)
[2023-05-08] MEDS ORDERED: VISBIOME 112.51 EACH PO (13:26)
[2023-05-08 15:38] VITALS: BP 140/75
--- NOTE | 2023-05-08 17:42 | NUR ---
DISCHARGE SUMMARY PATIENT IS ALERT AND ORIENTED. PATIENT HAS HAD NO ACUTE EVENTS THIS SHIFT. PATIENT HAD CHEST TUBE REMOVED AND TOLERATED WELL. PATIENT HAS HAD FAITH PLACED FOR RETENTION, PER DR VEGAS ORDERS. PATIENTS BROTHER PICKED UP PATIENT AND DISCHARGING HOME. MEDICATIONS FAXED AND PAPERWORK AGREED TO BY PATIENT.
== END 2023-05-08 17:35 | disposition home health service (06) | DRG 871 ==
LOC: ER 15:39 → MEDS 15:40 → ERHOLD 15:40 → MEDS 04-27 02:16 → ENPENDDIS 05-08 14:07 → MEDS 05-08 17:35
PROVIDERS: Family Medicine; Internal Medicine; Internal Medicine Critical Care Medicine; Physician Assistant; Student in an Organized Health Care Education/Training Program; ADMIT Internal Medicine
PROC: 3E03329 Introduction of Other Anti-infective into Peripheral Vein, Percutaneous Approach (ICD-10-PCS; 2023-04-26)
PROC: 0W9930Z Drainage of Right Pleural Cavity with Drainage Device, Percutaneous Approach (ICD-10-PCS; 2023-04-27)
PROC: 3E0L3GC Introduction of Other Therapeutic Substance into Pleural Cavity, Percutaneous Approach (ICD-10-PCS; principal; 2023-05-05)
DX: A41.9 Sepsis, unspecified organism (principal); J18.9 Pneumonia, unspecified organism; J86.9 Pyothorax without fistula; N17.9 Acute kidney failure, unspecified; E87.1 Hypo-osmolality and hyponatremia; I12.9 Hypertensive chronic kidney disease with stage 1 through stage 4 chronic kidney disease, or unspecified chronic kidney disease; E78.5 Hyperlipidemia, unspecified; M10.9 Gout, unspecified; E86.1 Hypovolemia; E87.6 Hypokalemia; N40.1 Benign prostatic hyperplasia with lower urinary tract symptoms; R65.20 Severe sepsis without septic shock; N28.89 Other specified disorders of kidney and ureter; R33.8 Other retention of urine; N18.30 Chronic kidney disease, stage 3 unspecified; Z79.82 Long term (current) use of aspirin; Z88.8 Allergy status to other drugs, medicaments and biological substances; Z79.1 Long term (current) use of non-steroidal anti-inflammatories (NSAID)
CPT/HCPCS: 36415; 49405; 71045; 71046; 71250; 71260; 74177; 76770; 80048; 80053; 81001; 82607; 82746; 82803; 82945; 83605; 83615; 83690; 83735; 83880; 84132; 84157; 84478; 84484; 85014; 85018; 85025; 85027; 85610; 85730; 87040; 87070; 87075; 87205; 87493; 88108; 88305; 89051; 93005; 93010; 94760; 96361; 96365; 96367; 96375; 97110; 97162; 99285-25; A9270; J0456; J0696; J1650; J2405; J2543; J2997; J3010; J3480; J7030; J7050; Q9967

== ENCOUNTER → 2023-05-12 | Outpatient (CLI) | payer OTHER ==
[~2023-05-12] MED LIST changes: +ALLO100 PO; +AMOX875 PO; +B-12 COMPL1000 MCG/2 IM; +BANATROL PLUS1 EAC1 PO; +POTCIT10 PO; +VISBIOME 112.51 EACH PO
[2023-05-12 20:01] LABS: BASOPHILS PERCENT AUTO 2 % (0-2); EOSINOPHILS ABSOLUTE AUTO 0.51 K/mm3 (0.00-0.68); EOSINOPHILS PERCENT AUTO 7 % (0-6); Hematocrit 27.2 % (37.0-53.0); Hemoglobin 8.9 g/dL (13.5-17.5); IMMATURE GRAN ABSOLUTE AUTO 0.01 K/mm3 (0.00-0.10); IMMATURE GRAN PERCENT AUTO 0 % (0-1); LYMPHOCYTES ABSOLUTE AUTO 1.95 K/mm3 (0.84-5.20); LYMPHOCYTES PERCENT AUTO 28 % (21-46); MONOCYTES ABSOLUTE AUTO 0.57 K/mm3 (0.16-1.47); MONOCYTES PERCENT AUTO 8 % (4-13); Mean Corpuscular HGB 34.1 pg (26.0-34.0); Mean Corpuscular HGB Conc 32.7 g/dL (31.5-36.5); Mean Corpuscular Volume 104 fL (80-100); Mean Platelet Volume 9.6 fL (9.1-12.4); NEUTROPHILS ABSOLUTE AUTO 3.72 K/mm3 (1.96-9.15); NEUTROPHILS PERCENT AUTO 54 % (41-73); Platelet Count 485 K/mm3 (150-400); RDW Coefficient Variation 17.3 % (11.7-14.2); RDW Standard Deviation 65.1 fL (35.1-46.3); Red Blood Cell Count 2.61 M/mm3 (4.30-5.90); White Blood Cell Count 6.86 K/mm3 (4.00-11.30)
[2023-05-12 20:30] LABS: Albumin, Blood 2.3 g/dL (3.4-5.0); Albumin/Globulin Ratio 0.4 (0.8-1.8); Bilirubin, Total 0.4 mg/dL (0.1-1.0); Bun/Creatinine Ratio 7.3 (12.0-20.0); Calcium, Blood 9.1 mg/dL (8.5-10.1); Creatinine, Blood 1.09 mg/dL (0.60-1.20); Globulin, Blood 5.7 g/dL (2.2-4.0)
== END ==
LOC: LAB SHORT 19:13 → LAB 19:13
PROVIDERS: Nurse Practitioner Family
DX: I10 Essential (primary) hypertension (principal)
CPT/HCPCS: 80053; 85025

== ENCOUNTER → 2023-12-23 | Outpatient (CLI) | payer OTHER ==
[2023-12-23 15:35] LABS: BASOPHILS ABSOLUTE AUTO 0.05 K/mm3 (0.00-0.23); BASOPHILS PERCENT AUTO 1 % (0-2); EOSINOPHILS ABSOLUTE AUTO 0.21 K/mm3 (0.00-0.68); EOSINOPHILS PERCENT AUTO 5 % (0-6); Hematocrit 33.9 % (37.0-53.0); Hemoglobin 11.5 g/dL (13.5-17.5); IMMATURE GRAN ABSOLUTE AUTO 0.01 K/mm3 (0.00-0.10); IMMATURE GRAN PERCENT AUTO 0 % (0-1); LYMPHOCYTES ABSOLUTE AUTO 1.44 K/mm3 (0.84-5.20); LYMPHOCYTES PERCENT AUTO 31 % (21-46); MONOCYTES ABSOLUTE AUTO 0.37 K/mm3 (0.16-1.47); MONOCYTES PERCENT AUTO 8 % (4-13); Mean Corpuscular HGB 35.4 pg (26.0-34.0); Mean Corpuscular HGB Conc 33.9 g/dL (31.5-36.5); Mean Corpuscular Volume 104 fL (80-100); Mean Platelet Volume 9.8 fL (9.1-12.4); NEUTROPHILS ABSOLUTE AUTO 2.54 K/mm3 (1.96-9.15); NEUTROPHILS PERCENT AUTO 55 % (41-73); Platelet Count 159 K/mm3 (150-400); RDW Coefficient Variation 13.2 % (11.7-14.2); RDW Standard Deviation 50.5 fL (35.1-46.3); RETICULOCYTE COUNT PERCENT 1.66 % (0.50-2.50); Red Blood Cell Count 3.25 M/mm3 (4.30-5.90); White Blood Cell Count 4.62 K/mm3 (4.00-11.30)
[2023-12-23 16:17] LABS: Thyroid Stimulating Hormone 1.22 uIU/mL (0.360-4.800)
[2023-12-23 16:18] LABS: Bun/Creatinine Ratio 12.8 (12.0-20.0); Calcium, Blood 8.4 mg/dL (8.5-10.1); Creatinine, Blood 1.41 mg/dL (0.60-1.20); Potassium, Blood 4.9 mmol/L (3.5-5.5)
[2023-12-26 15:34] LABS: ALBUMIN 3.35 g/dL (3.75-5.01); ALPHA 1 GLOBULIN 0.31 g/dL (0.19-0.46); BETA GLOBULIN 0.86 g/dL (0.48-1.10); GAMMA 1.28 g/dL (0.62-1.51); TOTAL PROTEIN,SERUM 6.5 g/dL (6.3-8.2)
== END ==
LOC: LAB 14:53 → LAB SHORT 14:53
PROVIDERS: Family Medicine
DX: G62.9 Polyneuropathy, unspecified (principal); N17.9 Acute kidney failure, unspecified; N18.9 Chronic kidney disease, unspecified; D64.9 Anemia, unspecified
CPT/HCPCS: 80048; 84155; 84165; 84443; 85025; 85045; 85060

== ENCOUNTER 2025-01-06 16:13 | Emergency (ER) | payer OTHER ==
[~2025-01-06] VITALS: Ht 175.3 cm; Wt 86.2 kg
[2025-01-06 17:01] VITALS: BP 174/141
[2025-01-06 17:34] LABS: BASOPHILS ABSOLUTE AUTO 0.05 K/mm3 (0.00-0.23); BASOPHILS PERCENT AUTO 1 % (0-2); EOSINOPHILS ABSOLUTE AUTO 0.13 K/mm3 (0.00-0.68); EOSINOPHILS PERCENT AUTO 2 % (0-6); Hematocrit 36.5 % (37.0-53.0); Hemoglobin 12.5 g/dL (13.5-17.5); IMMATURE GRAN ABSOLUTE AUTO 0.01 K/mm3 (0.00-0.10); IMMATURE GRAN PERCENT AUTO 0 % (0-1); LYMPHOCYTES ABSOLUTE AUTO 1.42 K/mm3 (0.84-5.20); LYMPHOCYTES PERCENT AUTO 22 % (21-46); MONOCYTES ABSOLUTE AUTO 0.45 K/mm3 (0.16-1.47); MONOCYTES PERCENT AUTO 7 % (4-13); Mean Corpuscular HGB Conc 34.2 g/dL (31.5-36.5); Mean Corpuscular Volume 104 fL (80-100); NEUTROPHILS ABSOLUTE AUTO 4.29 K/mm3 (1.96-9.15); NEUTROPHILS PERCENT AUTO 68 % (41-73); NRBC ABSOLUTE 0.00 K/mm3 (0.00-0.02); NRBC Auto 0.0 /100 WBC (0.0-0.2); Platelet Count 166 K/mm3 (150-400); RDW Coefficient Variation 14.3 % (11.7-14.2); RDW Standard Deviation 54.2 fL (35.1-46.3)
[2025-01-06 17:42] LABS: Source, Urine Clean Catch
[2025-01-06 18:01] LABS: Alanine Aminotransfer (ALT/SGP 26.0 U/L (12-78); Albumin, Blood 3.0 g/dL (3.4-5.0); Albumin/Globulin Ratio 0.7 (0.8-1.8); Anion Gap 7.0 mmol/L (3-11); Aspartate Aminotrans (AST/SGOT 25.0 U/L (12-37); Bilirubin, Total 0.6 mg/dL (0.1-1.0); Blood Urea Nitrogen 10.0 mg/dL (8-24); CO2, Blood 20.0 mmol/L (21-32); Calcium, Blood 9.0 mg/dL (8.5-10.1); Chloride, Blood 104.0 mmol/L (98-108); Creatinine, Blood 1.71 mg/dL (0.60-1.20); Globulin, Blood 4.2 g/dL (2.2-4.0); Glucose, Blood 104.0 mg/dL (70-99); Potassium, Blood 4.3 mmol/L (3.5-5.5); Sodium, Blood 127.0 mmol/L (136-145); Total Protein, Blood 7.2 g/dL (6.4-8.2)
[2025-01-06 18:28] LABS: Bilirubin, Urine Neg (Neg); Color, Urine Yellow (P-Yellow); Glucose Qualitative, Urine Neg (Neg); Ketones, Urine Neg (Neg); Leukocyte Esterase, Urine Neg (Neg); Protein, Urine Neg (Neg); Specific Gravity, Urine 1.010 (1.003-1.022); Urobilinogen, Urine NORM (Normal)
[2025-01-06 18:38] LABS: White Blood Cells, Urine 0-2 /hpf (0-5)
[2025-01-06] MEDS ORDERED: NS 1,000 ML IV SCH (19:15)
[2025-01-06 20:18] LABS: Calcium, Ionized (POC) 1.14 mmol/L (1.10-1.46); Chloride (POC) 104 mmol/L (98-108); Creatinine (POC) 1.8 mg/dL (0.8-1.3); Glucose (ISTAT POC) 93 mg/dL (70-99); Hematocrit (POC) 35.0 % (41.0-53.0); Hemoglobin (POC) 11.9 g/dL (13.5-17.5); Potassium (POC) 4.5 mmol/L (3.5-5.5); Sodium (POC) 134 mmol/L (135-148); Total CO2 (POC) 18 mmol/L (21-32)
== END 2025-01-06 20:57 | disposition home or self-care (01) ==
LOC: ER 16:13
PROVIDERS: Physician Assistant; Student in an Organized Health Care Education/Training Program
DX: R33.9 Retention of urine, unspecified (principal); I10 Essential (primary) hypertension; Z87.442 Personal history of urinary calculi; Z79.82 Long term (current) use of aspirin; Z79.899 Other long term (current) drug therapy; Z59.89 Other problems related to housing and economic circumstances
CPT/HCPCS: 51702; 51798; 80047; 80053; 81001; 85014; 85025; 93005; 93010; 99284-25; J7030

== ENCOUNTER 2025-03-07 14:52 | Emergency (ER) | payer OTHER ==
[~2025-03-07] VITALS: Ht 175.3 cm; Wt 72.6 kg
[2025-03-07 15:38] LABS: BASOPHILS ABSOLUTE AUTO 0.05 K/mm3 (0.00-0.23); BASOPHILS PERCENT AUTO 1 % (0-2); EOSINOPHILS ABSOLUTE AUTO 0.14 K/mm3 (0.00-0.68); EOSINOPHILS PERCENT AUTO 2 % (0-6); Hematocrit 35.9 % (37.0-53.0); Hemoglobin 12.3 g/dL (13.5-17.5); IMMATURE GRAN ABSOLUTE AUTO 0.03 K/mm3 (0.00-0.10); IMMATURE GRAN PERCENT AUTO 0 % (0-1); LYMPHOCYTES ABSOLUTE AUTO 1.34 K/mm3 (0.84-5.20); LYMPHOCYTES PERCENT AUTO 16 % (21-46); MONOCYTES ABSOLUTE AUTO 0.74 K/mm3 (0.16-1.47); MONOCYTES PERCENT AUTO 9 % (4-13); Mean Corpuscular HGB Conc 34.3 g/dL (31.5-36.5); Mean Corpuscular Volume 101 fL (80-100); NEUTROPHILS ABSOLUTE AUTO 5.90 K/mm3 (1.96-9.15); NEUTROPHILS PERCENT AUTO 72 % (41-73); NRBC ABSOLUTE 0.00 K/mm3 (0.00-0.02); NRBC Auto 0.0 /100 WBC (0.0-0.2); Platelet Count 290 K/mm3 (150-400); RDW Coefficient Variation 13.7 % (11.7-14.2); RDW Standard Deviation 50.4 fL (35.1-46.3)
[2025-03-07] MEDS ORDERED: NS 1,000 ML IV SCH ×3 (15:50→17:45)
[2025-03-07] MEDS ORDERED: MAGNESIUM OXID500 MG PO (15:51)
[2025-03-07] MEDS ORDERED: PANT40 (15:51)
[2025-03-07] MEDS ORDERED: B-1100 M1 PO (15:52)
[2025-03-07] MEDS ORDERED: Lidocaine 2% Jelly Uro-Jet UR ONE (15:55)
[2025-03-07 15:59] LABS: Alanine Aminotransfer (ALT/SGP 28.0 U/L (12-78); Albumin, Blood 3.0 g/dL (3.4-5.0); Albumin/Globulin Ratio 0.6 (0.8-1.8); Anion Gap 9.0 mmol/L (3-11); Aspartate Aminotrans (AST/SGOT 20.0 U/L (12-37); Bilirubin, Total 0.5 mg/dL (0.1-1.0); Blood Urea Nitrogen 26.0 mg/dL (8-24); CO2, Blood 23.0 mmol/L (21-32); Calcium, Blood 9.5 mg/dL (8.5-10.1); Chloride, Blood 106.0 mmol/L (98-108); Creatinine, Blood 1.54 mg/dL (0.60-1.20); Globulin, Blood 5.1 g/dL (2.2-4.0); Glucose, Blood 119.0 mg/dL (70-99); Potassium, Blood 3.5 mmol/L (3.5-5.5); Sodium, Blood 134.0 mmol/L (136-145); Total Protein, Blood 8.1 g/dL (6.4-8.2)
[2025-03-07 18:13] LABS: Source, Urine Foley catheter
[2025-03-07 18:19] LABS: Bilirubin, Urine Neg (Neg); Color, Urine Yellow (P-Yellow); Glucose Qualitative, Urine Neg (Neg); Ketones, Urine Neg (Neg); Leukocyte Esterase, Urine 3+ (Neg); Protein, Urine 2+ (Neg); Specific Gravity, Urine 1.015 (1.003-1.022); Urobilinogen, Urine NORM (Normal)
[2025-03-07 18:34] LABS: White Blood Cells, Urine 50-100 /hpf (0-5)
[2025-03-07] MEDS ORDERED: Trimethoprim/Sulfamethoxazole DS Tab PO ONE (19:00)
[2025-03-07] MEDS ORDERED: BACTRIM DS TAB1 EAC1 PO (19:24)
[2025-03-07 19:30] VITALS: BP 142/78
== END 2025-03-07 19:50 | disposition home or self-care (01) ==
LOC: ER 14:52
PROVIDERS: Student in an Organized Health Care Education/Training Program
DX: N39.0 Urinary tract infection, site not specified (principal); M54.2 Cervicalgia; I10 Essential (primary) hypertension; Z96.0 Presence of urogenital implants; Z79.899 Other long term (current) drug therapy
CPT/HCPCS: 36415; 51702; 80053; 81001; 83605; 83690; 84484; 85025; A9270; J7030